=== PATIENT | male | born 2000 | race Hispanic/Latino ===

== ENCOUNTER 2020-12-05 17:16 | Emergency (ER) | payer MEDICAID, OTHER ==
[2020-12-05] MEDS ORDERED: LIDOCAINE HCL 1% 20 ML VIAL ONE (17:44)
[2020-12-05] MEDS ORDERED: CEPHALEXIN 500 MG CAPSULE ONE (18:00)
[2020-12-05] MEDS ORDERED: ACETAMINOPHEN-CODEINE 300/30MG TAB ONE (18:00)
== END 2020-12-05 18:23 | disposition home or self-care (01) ==
LOC: EDH 17:16
DX: K61.0 Anal abscess (principal); Z72.0 Tobacco use; F19.10 Other psychoactive substance abuse, uncomplicated
CPT/HCPCS: 46050; 82948; 87070; 87076

== ENCOUNTER 2021-09-10 16:23 | Emergency (ER) | payer OTHER, SELFPAY ==
[~2021-09-10] VITALS: Ht 170.2 cm; Wt 81.6 kg
[2021-09-10] MEDS ORDERED: CLINDAMYCIN 150 MG CAP PO ONE (17:00)
[2021-09-10] MEDS ORDERED: CLINDAMYCIN 150 MG CAP ONE ×2 (17:08→17:10)
[2021-09-10] MEDS ORDERED: ONDANSETRON 4MG INJ IVP ONE (18:00)
[2021-09-10] MEDS ORDERED: MORPHINE 4 MG SYG IM ONE (18:00)
[2021-09-10 18:20] LABS: APPEARANCE,URINE Clear (CLEAR); BILIRUBIN,URINE Negative (NEGATIVE); COLOR,URINE Yellow (YELLOW); GLUCOSE, URINE (UA) Negative (NEGATIVE); KETONES,URINE 40 mg/dL (NEGATIVE); LEUKOCYTE ESTERASE ,URINE Negative (NEGATIVE); NITRATE,URINE Negative (NEGATIVE); OCCULT BLOOD,URINE Nonhemolyzed Trace (NEGATIVE); PH,URINE 7.5 (5.0-8.0); PROTEIN,URINE Negative (NEGATIVE)
[2021-09-10 18:21] LABS: BASOPHILS % (AUTO) 0.1 % (0.0-5.0); HEMATOCRIT 41.6 % (42-54); MEAN CORPUSCULAR HEMOGLOBIN 30.2 pg (27.0-33.0); MEAN CORPUSCULAR HGB CONC 33.7 g/dL (32.0-36.0); MEAN CORPUSCULAR VOLUME 89.8 fL (80-100); MONOCYTES % (AUTO) 6.2 % (3.0-13.0); NEUTROPHILS % (AUTO) 86.4 % (40.0-77.0); PLATELET COUNT (AUTO) 261 K/uL (130-400); RED BLOOD CELL COUNT(AUTO) 4.63 MIL/uL (4.50-6.20); RED CELL DISTRIBUTION WIDTH 12.7 % (11.0-15.5)
[2021-09-10 18:25] LABS: WBC,URINE 0-1 /HPF (0-1)
[2021-09-10 18:26] LABS: BACTERIA,URINE Rare /HPF (None Seen); MUCUS,URINE Rare LPF (None Seen); SQUAMOUS EPITHELIAL CELL,UR Rare /HPF (0-2)
[2021-09-10 18:32] LABS: CREATININE 0.8 mg/dL (0.5-1.5); POTASSIUM 3.4 mmol/L (3.5-5.1)
[2021-09-10 18:37] LABS: ALBUMIN 4.1 g/dL (3.5-5.0); TOTAL PROTEIN, SERUM 7.5 g/dL (6.0-8.3)
[2021-09-10 22:26] VITALS: BP 133/72
== END 2021-09-10 22:43 | disposition short-term general hospital (02) ==
LOC: EDH 16:23
DX: S02.601A Fracture of unspecified part of body of right mandible, initial encounter for closed fracture (principal); S02.652A Fracture of angle of left mandible, initial encounter for closed fracture; S01.512A Laceration without foreign body of oral cavity, initial encounter; Z20.822 Contact with and (suspected) exposure to COVID-19; V49.9XXA Car occupant (driver) (passenger) injured in unspecified traffic accident, initial encounter; Y93.89 Activity, other specified; Y92.89 Other specified places as the place of occurrence of the external cause; Y99.8 Other external cause status
CPT/HCPCS: 36415; 70450; 70486; 72125; 80053; 81001; 85025; 87635; 96372; 96374; 99285; C9803; J2270; J2405